=== PATIENT | female | born 2000 | race Two or more races ===

== ENCOUNTER 2024-10-04 19:07 | Emergency (ER) | payer OTHER ==
[~2024-10-04] VITALS: Ht 170.2 cm; Wt 89.4 kg
[2024-10-04] MEDS ORDERED: CEFTRIAXONE SODIUM 1,000 MG VIAL IM STA (20:14)
[2024-10-04] MEDS ORDERED: KETOROLAC TROMETHAMINE 30 MG VIAL IM STA (20:14)
[2024-10-04] MEDS ORDERED: KETOROLAC TROMETHAMINE 30 MG VIAL ONE (20:37)
[2024-10-04] MEDS ORDERED: CEFTRIAXONE SODIUM 1,000 MG VIAL ONE (20:37)
== END 2024-10-04 20:52 | disposition home or self-care (01) ==
LOC: ER 19:10
DX: L03.213 Periorbital cellulitis (principal)